=== PATIENT | male | born 1995 | race African-American/Black ===

== ENCOUNTER 2020-05-03 13:01 | Inpatient (IN) | payer MEDICAID ==
[~2020-05-03] VITALS: Ht 180.3 cm; Wt 69.4 kg
[~2020-05-03 13:01] MED LIST: QUET200T PO
[2020-05-03 13:45] LABS: BASOPHILS % (AUTO) 0.2 % (0.0-2.0); EOSINOPHILS % (AUTO) 0.4 % (1.0-6.0); HEMATOCRIT 38.7 % (41-53); HEMOGLOBIN 13.2 g/dL (13.5-17.5); LYMPHOCYTES # (AUTO) 1.4 K/uL (1.0-4.8); LYMPHOCYTES % (AUTO) 12.8 % (22.0-44.0); MEAN CORPUSCULAR HEMOGLOBIN 30.7 pg (26.0-34.0); MEAN CORPUSCULAR HGB CONC 34.2 G/dL (31.0-37.0); MEAN CORPUSCULAR VOLUME 90 fL (80-100); MONOCYTES # (AUTO) 0.9 K/uL (0.1-1.0); MONOCYTES % (AUTO) 8.6 % (2.0-9.0); NEUTROPHILS # (AUTO) 8.4 K/uL (1.8-7.7); PLATELET COUNT (AUTO) 261 K/uL (150-450); RED BLOOD CELL COUNT(AUTO) 4.32 MIL/uL (4.50-5.90)
[2020-05-03 13:56] LABS: ANION GAP 7 mmol/L (8-16); CALCIUM, TOTAL 8.8 mg/dL (8.8-10.5); CARBON DIOXIDE 31 mmol/L (22-29); CHLORIDE 105 mmol/L (98-107); COVID AG,FIA SOURCE NASOPHARYNGEAL; CREATININE 0.89 mg/dL (0.60-1.30); GLOMERULAR FILTR. RATE CALC > 60 mL/min (>60); GLUCOSE,RANDOM 68 mg/dL (70-110); POTASSIUM 3.5 mmol/L (3.5-5.1); SODIUM SERUM 143 mmol/L (136-145); UREA NITROGEN, BLOOD 10 mg/dL (7-18)
[2020-05-03 14:00] LABS: ALANINE AMINOTRANSFERASE 25 U/L (12-78); ALBUMIN 3.6 g/dL (3.4-5.0); ALKALINE PHOSPHATASE 61 U/L (46-116); ASPARTATE AMINOTRANSFERASE 14 U/L (15-37); BILIRUBIN,TOTAL 0.3 mg/dL (0.1-1.0); TOTAL PROTEIN, SERUM 7.1 g/dL (6.4-8.2)
[2020-05-03 19:00] VITALS: BP 141/80
[2020-05-03] MEDS ORDERED: LORazepam 2 MG TABLET PO PRN (19:45)
[2020-05-03] MEDS ORDERED: ZOLPIDEM TARTRATE 10 MG TABLET PO PRN (19:45)
[2020-05-03] MEDS ORDERED: HALOPERIDOL 5 MG TABLET PO PRN (19:45)
[2020-05-03] MEDS: OLANZapine 10 MG TABLET PO SCH (20:44)
[2020-05-04] MEDS: OLANZapine 5 MG TABLET PO SCH (10:38)
[2020-05-04] MEDS ORDERED: ACETAMINOPHEN 325 MG TABLET PO PRN (15:30)
[2020-05-04] MEDS ORDERED: PETROLATUM,WHITE 28 GM JELLY TP PRN (15:30)
[2020-05-04] MEDS ORDERED: MAG HYDROX/AL HYDROX/SIMETH ES 30 ML SUSPENSION UDCUP PO PRN (15:30)
[2020-05-04] MEDS ORDERED: IBUPROFEN 400 MG TABLET PO PRN (15:30)
[2020-05-04] MEDS ORDERED: MAGNESIUM HYDROXIDE SUSPENSION 30 ML UDCUP PO PRN (15:30)
[2020-05-04] MEDS ORDERED: NICOTINE 14 MG/24 HOUR PATCH TD PRN (15:30)
[2020-05-04] MEDS ORDERED: ALBUTEROL SULFATE HFA 90 MCG/PUFF 8 GM INHALER IH PRN (15:30)
[2020-05-04] MEDS ORDERED: GuaiFENesin/D-METHORPHAN [SUGAR-FREE] 200-20MG/10 ML SYRUP UDCUP PO PRN (15:30)
[2020-05-04] MEDS ORDERED: CloNIDine HCL 0.1 MG TABLET PO PRN (15:30)
[2020-05-04] MEDS ORDERED: ONDANSETRON HCL 4 MG TABLET PO PRN (15:30)
[2020-05-04] MEDS ORDERED: DOCUSATE SODIUM 100 MG CAPSULE PO PRN (15:30)
[2020-05-04] MEDS ORDERED: LOPERAMIDE HCL 2 MG CAPSULE PO PRN (15:30)
[2020-05-04 16:39] VITALS: BP 112/72
[2020-05-04] MEDS: OLANZapine 10 MG TABLET PO SCH (20:51)
[2020-05-05] MEDS: OLANZapine 5 MG TABLET PO SCH (10:37)
[2020-05-05 13:30] VITALS: BP 127/83
[2020-05-05 16:21] VITALS: BP 138/83
[2020-05-05] MEDS: OLANZapine 10 MG TABLET PO SCH (21:29)
[2020-05-06] MEDS: OLANZapine 5 MG TABLET PO SCH (08:15)
[2020-05-06 09:34] VITALS: BP 128/80
[2020-05-06 11:56] VITALS: BP 127/68
[2020-05-06 16:00] VITALS: BP 128/81
[2020-05-06] MEDS: OLANZapine 10 MG TABLET PO SCH (20:10)
[2020-05-07 08:44] VITALS: BP 126/78
[2020-05-07] MEDS: OLANZapine 5 MG TABLET PO SCH (09:10)
[2020-05-07 16:47] VITALS: BP 131/73
[2020-05-07] MEDS ORDERED: INFLUENZA VIRUS VACCINE QVS 2020-21 (6MO+)/PF 60 MCG/0.5 ML SYRINGE IM ONE (17:30)
[2020-05-07] MEDS: FERROUS SULFATE 325 MG EC TABLET PO SCH (18:40)
[2020-05-07] MEDS: OLANZapine 10 MG TABLET PO SCH (20:37)
[2020-05-07] MEDS: BENZOCAINE/MENTHOL LOZENGE PO PRN (21:04)
[2020-05-08] MEDS: FERROUS SULFATE 325 MG EC TABLET PO SCH ×2 (06:52→16:39)
[2020-05-08 07:58] VITALS: BP 120/77
[2020-05-08] MEDS: OLANZapine 5 MG TABLET PO SCH (08:34)
[2020-05-08] MEDS: BENZOCAINE/MENTHOL LOZENGE PO PRN (14:28)
[2020-05-08 16:00] VITALS: BP 142/85
[2020-05-08] MEDS ORDERED: OLAN10TA3 PO (18:27)
[2020-05-08] MEDS ORDERED: OLAN5TAB2 PO (18:27)
== END 2020-05-08 19:45 | disposition home or self-care (01) | DRG 750 ==
LOC: EMS 13:01 → 3EI 18:30
PROVIDERS: ADMIT Psychiatry & Neurology Child & Adolescent Psychiatry; ATTEND Psychiatry & Neurology Child & Adolescent Psychiatry
DX: F25.0 Schizoaffective disorder, bipolar type (principal); F31.9 Bipolar disorder, unspecified; Z91.14 Patient's other noncompliance with medication regimen; R45.851 Suicidal ideations; Z59.0 Homelessness; Z88.8 Allergy status to other drugs, medicaments and biological substances; F41.9 Anxiety disorder, unspecified; D64.9 Anemia, unspecified; E44.0 Moderate protein-calorie malnutrition; E16.2 Hypoglycemia, unspecified; F15.90 Other stimulant use, unspecified, uncomplicated; F14.90 Cocaine use, unspecified, uncomplicated; F17.210 Nicotine dependence, cigarettes, uncomplicated; Z20.822 Contact with and (suspected) exposure to COVID-19
CPT/HCPCS: 87426; 99285; G0480